=== PATIENT | female | born 1940 | race Caucasian/White ===

== ENCOUNTER → 2016-11-25 14:45 | Outpatient (CLI) | payer MEDICARE, BC ==
[2012-06-05 10:31] VITALS: BMI 28.4
== END | disposition home or self-care (01) ==
LOC: D.MRI 14:45
DX: R55 Syncope and collapse (principal)

== ENCOUNTER 2018-01-05 15:24 | Inpatient (IN) | payer MEDICARE, BC ==
[2018-01-05] VITALS (11 sets, daily range): BP systolic 119–200; BP diastolic 50–74
[~2018-01-05] VITALS: Ht 162.6 cm; Wt 73.5 kg
[2018-01-05] MEDS ORDERED: ASPIRIN81 MG PO (15:28)
[2018-01-05] MEDS ORDERED: GLIMEPIRIDE4 MG PO (15:28)
[2018-01-05] MEDS ORDERED: COREG12.5 MG PO (15:28)
[2018-01-05] MEDS ORDERED: FISH OIL 1,0001 CA1 PO (15:28)
[2018-01-05] MEDS ORDERED: PRAVACHOL20 MG PO (15:29)
[2018-01-05] MEDS ORDERED: PRINIVIL20 MG PO (15:29)
[2018-01-05] MEDS ORDERED: AMBIEN10 MG PO (15:29)
[2018-01-05] MEDS ORDERED: FUROSEMIDE20 MG PO (15:30)
[2018-01-05] MEDS ORDERED: ACTOS30 MG PO (15:30)
[2018-01-05] MEDS ORDERED: OMEPRAZOLE20 M1 PO (15:31)
[2018-01-05 17:05] LABS: CKMB 1.5 U/L (0.0-3.6); CREATINE KINASE 92 UL (21-215)
[2018-01-05 17:59] LABS: BASOPHILS 0.3 % (0-2); EOSINOPHILS 2.9 % (0-7); HEMATOCRIT 25.8 % (36.0-48.0); HEMOGLOBIN 8.2 g/dL (12-16); IMMATURE GRANULOCYTES 0.3 % (0-5); LYMPHOCYTES 32.5 % (15-50); MCH 29.1 pg (26.0-34.0); MCHC 31.8 g/dL (31.0-37.0); MCV 91.5 fL (80.0-100.0); MEAN PLATELET VOLUME 9.6 fL (7.4-10.4); MONOCYTES 8.3 % (2-11); NEUTROPHILS 55.7 % (40-80); PLATELET COUNT 205 10x3/uL (130-400); RBC 2.82 10x6/uL (4.00-5.40); RDW 15.8 % (11.5-14.5)
[2018-01-05 18:08] LABS: ALBUMIN 2.6 g/dL (3.4-5.0); ANION GAP 14.4 mmol/L (8-16); BILIRUBIN - TOTAL 0.19 mg/dL (0.2-1.3); CALCIUM 8.9 mg/dL (8.5-10.1); CARBON DIOXIDE 24.6 mmol/L (21.0-32.0); CREATININE - SERUM 2.4 mg/dL (0.6-1.3); PROTEIN - SERUM 6.4 g/dL (6.4-8.2)
[2018-01-05 18:53] LABS: APPEARANCE HAZY (CLEAR); BILIRUBIN NEGATIVE (NEGATIVE); COLOR STRAW (YELLOW); GLUCOSE NEGATIVE (NEGATIVE); KETONE NEGATIVE (NEGATIVE); NITRITE POSITIVE (NEGATIVE); PROTEIN TRACE mg/dL (NEGATIVE); SPECIFIC GRAVITY 1.015 (1.005-1.020); UROBILINOGEN NORMAL (NORMAL)
[2018-01-05 18:54] LABS: BACTERIA MANY /hpf (NONE SEEN); EPITHELIAL CELLS 0-5 /hpf (0-5)
[2018-01-06 00:21] VITALS: BP 190/79; BMI 27.8
[2018-01-06 01:43] LABS: CREATINE KINASE 104 UL (21-215)
[2018-01-06 01:46] LABS: TROPONIN-I 0.101 ng/mL (0.000-0.060)
[2018-01-06 04:00] VITALS: BP 158/47
[2018-01-06 09:19] LABS: CKMB 2.5 U/L (0.0-3.6); CREATINE KINASE 141 UL (21-215)
[2018-01-06 09:25] LABS: TROPONIN-I 0.094 ng/mL (0.000-0.060)
[2018-01-06 10:15] VITALS: BP 178/66
[2018-01-06 12:17] VITALS: BP 163/55
[2018-01-06 14:34] LABS: % SATURATION 19 % (15-55); IRON 53 ug/dl (35-150); TOTAL IRON BIND CAPACITY 274 ug/dl (260-445); UNSAT IRON BIND CAPACITY 221 ug/dl (150-375)
[2018-01-06 17:06] VITALS: BP 188/62
[2018-01-06 20:49] VITALS: BP 164/49
[2018-01-07 04:17] VITALS: BP 159/58
[2018-01-07 06:54] LABS: BASOPHILS 0.2 % (0-2); EOSINOPHILS 2.4 % (0-7); HEMATOCRIT 23.3 % (36.0-48.0); IMMATURE GRANULOCYTES 0.1 % (0-5); MCHC 31.8 g/dL (31.0-37.0); MCV 91.4 fL (80.0-100.0); MEAN PLATELET VOLUME 9.5 fL (7.4-10.4); MONOCYTES 10.2 % (2-11); NEUTROPHILS 55.1 % (40-80); PLATELET COUNT 193 10x3/uL (130-400); RBC 2.55 10x6/uL (4.00-5.40); RDW 16.1 % (11.5-14.5); WBC 8.6 10x3/uL (4.8-10.8)
[2018-01-07 07:02] LABS: HEMOGLOBIN 7.4 g/dL (12-16)
[2018-01-07 07:27] LABS: ALBUMIN 2.1 g/dL (3.4-5.0); ANION GAP 11.3 mmol/L (8-16); BILIRUBIN - TOTAL 0.12 mg/dL (0.2-1.3); CALCIUM 8.5 mg/dL (8.5-10.1); CARBON DIOXIDE 24.3 mmol/L (21.0-32.0); POTASSIUM - SERUM 4.6 mmol/L (3.5-5.1); PROTEIN - SERUM 5.5 g/dL (6.4-8.2)
[2018-01-07 09:09] VITALS: BP 181/94
[2018-01-07 12:31] VITALS: BP 186/63
[2018-01-07 19:34] VITALS: BP 166/63
[2018-01-08 04:05] VITALS: BP 145/62
[2018-01-08 05:52] LABS: BASOPHILS 0.3 % (0-2); EOSINOPHILS 2.4 % (0-7); HEMATOCRIT 27.3 % (36.0-48.0); HEMOGLOBIN 8.7 g/dL (12-16); IMMATURE GRANULOCYTES 0.3 % (0-5); LYMPHOCYTES 33.9 % (15-50); MCH 28.3 pg (26.0-34.0); MCHC 31.9 g/dL (31.0-37.0); MEAN PLATELET VOLUME 9.1 fL (7.4-10.4); MONOCYTES 11.5 % (2-11); NEUTROPHILS 51.6 % (40-80); PLATELET COUNT 180 10x3/uL (130-400); RDW 16.3 % (11.5-14.5); WBC 7.9 10x3/uL (4.8-10.8)
[2018-01-08 06:07] LABS: RBC 3.07 10x6/uL (4.00-5.40)
[2018-01-08 06:08] LABS: MCV 88.9 fL (80.0-100.0)
[2018-01-08 06:22] LABS: ALBUMIN 2.3 g/dL (3.4-5.0); ANION GAP 12.8 mmol/L (8-16); BILIRUBIN - TOTAL 0.2 mg/dL (0.2-1.3); CALCIUM 8.8 mg/dL (8.5-10.1); CARBON DIOXIDE 22.2 mmol/L (21.0-32.0); CREATININE - SERUM 1.9 mg/dL (0.6-1.3)
[2018-01-08 08:25] VITALS: BP 153/45
[2018-01-08 13:22] VITALS: BP 182/68
[2018-01-08 14:32] VITALS: BMI 27.8
[2018-01-08 16:55] VITALS: BP 161/81
[2018-01-08 20:00] VITALS: BP 164/63
[2018-01-09 00:18] VITALS: BP 117/47
[2018-01-09 04:10] VITALS: BP 143/59
[2018-01-09 06:19] LABS: BASOPHILS 0.2 % (0-2); EOSINOPHILS 3.1 % (0-7); HEMATOCRIT 26.2 % (36.0-48.0); HEMOGLOBIN 8.3 g/dL (12-16); IMMATURE GRANULOCYTES 0.2 % (0-5); LYMPHOCYTES 26.9 % (15-50); MCHC 31.7 g/dL (31.0-37.0); MEAN PLATELET VOLUME 9.4 fL (7.4-10.4); MONOCYTES 12.1 % (2-11); NEUTROPHILS 57.5 % (40-80); PLATELET COUNT 174 10x3/uL (130-400); RBC 2.86 10x6/uL (4.00-5.40); RDW 16.5 % (11.5-14.5); WBC 8.1 10x3/uL (4.8-10.8)
[2018-01-09 06:20] LABS: MCV 91.6 fL (80.0-100.0)
[2018-01-09 06:45] LABS: ALBUMIN 2.2 g/dL (3.4-5.0); ANION GAP 11.8 mmol/L (8-16); BILIRUBIN - TOTAL 0.1 mg/dL (0.2-1.3); CALCIUM 7.9 mg/dL (8.5-10.1); CARBON DIOXIDE 23.2 mmol/L (21.0-32.0); CREATININE - SERUM 2.1 mg/dL (0.6-1.3); PROTEIN - SERUM 5.5 g/dL (6.4-8.2)
[2018-01-09 07:34] LABS: FOLATE (FOLIC ACID) - SERUM 14.2 ng/mL (>3.0)
[2018-01-09 08:28] VITALS: BP 168/57
[2018-01-09 15:57] VITALS: BP 131/59
[2018-01-09 19:15] VITALS: BP 179/57
[2018-01-09 20:00] VITALS: BP 188/65
[2018-01-10] VITALS: BP 136/85
[2018-01-10 04:01] VITALS: BP 162/80
[2018-01-10 06:19] LABS: BASOPHILS 0.2 % (0-2); EOSINOPHILS 2.6 % (0-7); HEMATOCRIT 26.2 % (36.0-48.0); HEMOGLOBIN 8.2 g/dL (12-16); IMMATURE GRANULOCYTES 0.3 % (0-5); LYMPHOCYTES 21.6 % (15-50); MCH 28.9 pg (26.0-34.0); MCHC 31.3 g/dL (31.0-37.0); MCV 92.3 fL (80.0-100.0); MEAN PLATELET VOLUME 9.3 fL (7.4-10.4); MONOCYTES 11.9 % (2-11); NEUTROPHILS 63.4 % (40-80); PLATELET COUNT 178 10x3/uL (130-400); RBC 2.84 10x6/uL (4.00-5.40); RDW 16.4 % (11.5-14.5); WBC 9.7 10x3/uL (4.8-10.8)
[2018-01-10 06:44] LABS: ALBUMIN 2.2 g/dL (3.4-5.0); ANION GAP 13.9 mmol/L (8-16); BILIRUBIN - TOTAL 0.2 mg/dL (0.2-1.3); CARBON DIOXIDE 23.3 mmol/L (21.0-32.0); CREATININE - SERUM 1.9 mg/dL (0.6-1.3); POTASSIUM - SERUM 5.2 mmol/L (3.5-5.1); PROTEIN - SERUM 5.6 g/dL (6.4-8.2)
[2018-01-10 08:34] VITALS: BP 189/75
[2018-01-10 12:25] VITALS: BP 174/68
[2018-01-10 15:28] VITALS: BP 162/54
[2018-01-10 20:00] VITALS: BP 175/77
[2018-01-11 03:45] VITALS: BP 180/75
[2018-01-11 05:58] LABS: BASOPHILS 0.2 % (0-2); EOSINOPHILS 1.7 % (0-7); HEMATOCRIT 27.5 % (36.0-48.0); HEMOGLOBIN 8.6 g/dL (12-16); IMMATURE GRANULOCYTES 0.4 % (0-5); LYMPHOCYTES 17.3 % (15-50); MCH 29.1 pg (26.0-34.0); MCHC 31.3 g/dL (31.0-37.0); MCV 92.9 fL (80.0-100.0); MEAN PLATELET VOLUME 8.6 fL (7.4-10.4); MONOCYTES 7.4 % (2-11); PLATELET COUNT 157 10x3/uL (130-400); RBC 2.96 10x6/uL (4.00-5.40); RDW 16.2 % (11.5-14.5)
[2018-01-11 06:02] LABS: WBC 12.5 10x3/uL (4.8-10.8)
[2018-01-11 06:28] LABS: ALBUMIN 2.4 g/dL (3.4-5.0); ANION GAP 9.3 mmol/L (8-16); BILIRUBIN - TOTAL 0.27 mg/dL (0.2-1.3); CALCIUM 8.6 mg/dL (8.5-10.1); CARBON DIOXIDE 26.1 mmol/L (21.0-32.0); CREATININE - SERUM 1.8 mg/dL (0.6-1.3); POTASSIUM - SERUM 5.4 mmol/L (3.5-5.1); PROTEIN - SERUM 6.3 g/dL (6.4-8.2)
[2018-01-11 12:22] VITALS: BP 126/63
[2018-01-11 14:01] VITALS: Ht 162.6 cm; Wt 73.5 kg
[2018-01-11] MEDS ORDERED: HYDRALAZINE HCL25 MG PO (15:14)
[2018-01-11] MEDS ORDERED: TESSALON PERLE100 MG PO (15:15)
[2018-01-11] MEDS ORDERED: LEVAQUIN250 MG PO (15:15)
[2018-01-11] MEDS ORDERED: MUCINEX600 MG PO (15:15)
[2018-01-11] MEDS ORDERED: VELTASSA8.4 GM PO (15:16)
[2018-01-11 15:51] VITALS: BP 177/58
[2018-01-12 15:24] LABS: SPE - ALBUMIN 2.9 g/dL (2.9-4.4); SPE - ALPHA-1 GLOBULIN 0.3 g/dL (0.0-0.4); SPE - ALPHA-2 GLOBULIN 0.8 g/dL (0.4-1.0); SPE - BETA GLOBULIN 0.9 g/dL (0.7-1.3); SPE - GAMMA GLOBULIN 0.9 g/dL (0.4-1.8); SPE - M-SPIKE Not Observed g/dL (Not Observed); SPE - TOTAL PROTEIN 5.8 g/dL (6.0-8.5)
== END 2018-01-11 16:16 | disposition home health service (06) | DRG 872 ==
LOC: D.ER 15:24 → D.EDHOLD 20:21 → D.MS 20:21 → OBSVTIME 20:21 → D.MS 20:26
PROVIDERS: Family Medicine; Internal Medicine Nephrology
DX: A41.9 Sepsis, unspecified organism (principal); N39.0 Urinary tract infection, site not specified; N17.9 Acute kidney failure, unspecified; R53.1 Weakness; E11.22 Type 2 diabetes mellitus with diabetic chronic kidney disease; I12.9 Hypertensive chronic kidney disease with stage 1 through stage 4 chronic kidney disease, or unspecified chronic kidney disease; N18.3 Chronic kidney disease, stage 3 (moderate); J44.9 Chronic obstructive pulmonary disease, unspecified; D64.9 Anemia, unspecified

== ENCOUNTER 2018-01-12 13:26 | Inpatient (IN) | payer MEDICARE, BC ==
[2018-01-12] VITALS (8 sets, daily range): BP systolic 151–231; BP diastolic 52–104; BMI 27.8
[~2018-01-12] VITALS: Ht 162.6 cm; Wt 73.5 kg
--- NOTE | ~2018-01-12 | EC ---
PATIENT:DERRICK YAN DATE OF SERVICE: 01/12/18 SEX: F MEDICAL RECORD: [id number] DATE OF : 42 LOCATION:D.M2 D.213 AGE OF PATIENT: 77 ADMISSION DATE: 01/12/18 REFERRING PHYSICIAN: INTERPRETING PHYSICIAN: LIZ CORREA MD ECHOCARDIOGRAM REPORT ECHO CHARGES 4 ECHO COMPLETE Date: 01/13 CLINICAL DIAGNOSIS: CHF/EDEMA ECHOCARDIOGRAPHIC MEASUREMENTS (adult normal given) AC root (d.<3.7cm) 3.3 cm LV Septum d (<1.2 cm> 1.7 cm Valve Excursion 2.1 cm LV Septum (systole) 2.3 cm Left Atria (s.<4.0cm> 3.2 cm LVPW d(<1.2cm) 1.4 cm RV (d.<2.3cm) 2.2 cm LVPW (sytole) 2.2 cm LV diastole(<5.6CM) 4.8 cm MV E-F(>70mm/sec) cm LV systole 2.2 cm LVOT Diameter 1.7 cm MV exc.(>10mm) cm Est.ejection fraction (50-75%) % DOPPLER: LVIT cm/sec A 148 cm/sec E 130 cm/sec LA cm/sec RVSP 38.0 mmHg LVOT 113 cm/sec AOP1/2T m/s Asc. Ao 140 cm/sec RVOT 100 cm/sec RA cm/sec PA 107 cm/sec AV Gradient Peak 7.8 mmHg AV Mean 3.1 mmHg AV Area 2.4 cm MV Gradient Peak 9.8 mmHg MV Mean 3.4 mmHg MV Area cm COMMENTS: Picture Copyist: 1 [place] Polymer Engineer: 4 Dr. Correa TAPE# PACS Pericardial Effusion N DATE OF SERVICE: PROCEDURE: Transthoracic echocardiogram. FINDINGS: 1. The patient has evidence of left ventricular hypertrophy. Ejection fraction in the left ventricle is 60% to 65%. Inflow characteristics consistent with diastolic dysfunction. 2. The left atrium is normal in size, shape, and function. 3. The aortic valve is normal. ECHOCARDIOGRAM REPORT [id number] DERRICK YAN 4. The mitral valve has [id number] mitral regurgitation. There is mitral annular calcification. 5. The tricuspid valve has moderate tricuspid regurgitation. RVSP is 30-35 mmHg. 6. The right ventricle is normal. 7. The right atrium is normal. 8. The pulmonic valve has trace pulmonic valve insufficiency. CONCLUSION: The patient has evidence of hypertensive heart disease and diastolic dysfunction, otherwise normal echo for stated age. TRANSINT:[id number] Voice Confirmation ID: [id number] DOCUMENT ID: [id number] LIZ CORREA MD at 1147 CC: [id number] DICTATION DATE: 01/14/181815 ARBOREAL SCIENTIST: 01/14/181932 DIS IN 01/16/18 [facility] [address] [place] [address]
[~2018-01-12 13:26] MED LIST: ACTOS30 MG PO; AMBIEN10 MG PO; ASPIRIN81 MG PO; COREG12.5 MG PO; FISH OIL 1,0001 CA1 PO; FUROSEMIDE20 MG PO; GLIMEPIRIDE4 MG PO; HYDRALAZINE HCL25 MG PO; LEVAQUIN250 MG PO; MUCINEX600 MG PO; OMEPRAZOLE20 M1 PO; PRAVACHOL20 MG PO; PRINIVIL20 MG PO; TESSALON PERLE100 MG PO; VELTASSA8.4 GM PO
[2018-01-12 14:39] LABS: BASOPHILS 0.3 % (0-2); EOSINOPHILS 1.1 % (0-7); HEMATOCRIT 27.2 % (36.0-48.0); HEMOGLOBIN 8.6 g/dL (12-16); IMMATURE GRANULOCYTES 0.6 % (0-5); LYMPHOCYTES 18.8 % (15-50); MCH 29.4 pg (26.0-34.0); MCHC 31.6 g/dL (31.0-37.0); MCV 92.8 fL (80.0-100.0); MEAN PLATELET VOLUME 9.1 fL (7.4-10.4); MONOCYTES 9.5 % (2-11); NEUTROPHILS 69.7 % (40-80); PLATELET COUNT 175 10x3/uL (130-400); RBC 2.93 10x6/uL (4.00-5.40); RDW 15.7 % (11.5-14.5); WBC 10.2 10x3/uL (4.8-10.8)
[2018-01-12 14:46] LABS: APPEARANCE CLEAR (CLEAR); BILIRUBIN NEGATIVE (NEGATIVE); COLOR YELLOW (YELLOW); GLUCOSE NEGATIVE (NEGATIVE); KETONE NEGATIVE (NEGATIVE); NITRITE NEGATIVE (NEGATIVE); PROTEIN NEGATIVE (NEGATIVE); SPECIFIC GRAVITY 1.015 (1.005-1.020); UROBILINOGEN NORMAL (NORMAL)
[2018-01-12 14:47] LABS: BACTERIA FEW /hpf (NONE SEEN); WHITE CELLS - URINE OCC /hpf (0-5); YEAST >1+ /hpf (NONE SEEN)
[2018-01-12 15:01] LABS: ALBUMIN 2.6 g/dL (3.4-5.0); ALKALINE PHOSPHATASE 59 U/L (46-116); BILIRUBIN - TOTAL 0.23 mg/dL (0.2-1.3); CALCIUM 8.8 mg/dL (8.5-10.1); CHLORIDE - SERUM 105 mmol/L (98-107); GLUCOSE 159 mg/dL (74-106); POTASSIUM - SERUM 5.3 mmol/L (3.5-5.1); PROTEIN - SERUM 6.1 g/dL (6.4-8.2); SODIUM 139 mmol/L (136-145); eGFR NON AFRICAN AMERICAN 26 mL/min (90-120)
[2018-01-12 15:03] LABS: ALT (SGPT) 25 U/L (10-68); CALC OSMOLALITY 290 mosm/kg (275-300); UREA NITROGEN 40 mg/dL (7-18)
[2018-01-12 15:16] LABS: CKMB 2.1 U/L (0.0-3.6); CREATINE KINASE 116 UL (21-215); PRO BNP 7076 pg/mL (0-450)
[2018-01-12 15:20] LABS: TROPONIN-I 0.063 ng/mL (0.000-0.060)
[2018-01-13 01:25] VITALS: BP 142/49
[2018-01-13 05:37] VITALS: BP 147/54
[2018-01-13 05:47] LABS: BASOPHILS 0.2 % (0-2); EOSINOPHILS 1.8 % (0-7); HEMATOCRIT 26.6 % (36.0-48.0); HEMOGLOBIN 8.2 g/dL (12-16); IMMATURE GRANULOCYTES 0.2 % (0-5); MCH 28.8 pg (26.0-34.0); MCHC 30.8 g/dL (31.0-37.0); MCV 93.3 fL (80.0-100.0); MEAN PLATELET VOLUME 9.4 fL (7.4-10.4); MONOCYTES 11.3 % (2-11); NEUTROPHILS 66.5 % (40-80); PLATELET COUNT 169 10x3/uL (130-400); RBC 2.85 10x6/uL (4.00-5.40); RDW 15.7 % (11.5-14.5); WBC 8.4 10x3/uL (4.8-10.8)
[2018-01-13 06:18] LABS: ALBUMIN 2.2 g/dL (3.4-5.0); ANION GAP 9.1 mmol/L (8-16); BILIRUBIN - TOTAL 0.23 mg/dL (0.2-1.3); CALCIUM 8.3 mg/dL (8.5-10.1); CARBON DIOXIDE 29.6 mmol/L (21.0-32.0); POTASSIUM - SERUM 5.7 mmol/L (3.5-5.1); PROTEIN - SERUM 5.5 g/dL (6.4-8.2)
[2018-01-13 08:06] VITALS: BP 126/76
[2018-01-13 12:59] VITALS: Ht 162.6 cm; Wt 73.5 kg
[2018-01-13 16:45] VITALS: BP 122/73
[2018-01-13 20:00] VITALS: BP 137/50
[2018-01-14 04:00] VITALS: BP 180/62
[2018-01-14 05:05] LABS: BASOPHILS 0.2 % (0-2); EOSINOPHILS 2.5 % (0-7); HEMATOCRIT 26.2 % (36.0-48.0); HEMOGLOBIN 8.1 g/dL (12-16); IMMATURE GRANULOCYTES 0.2 % (0-5); LYMPHOCYTES 19.9 % (15-50); MCH 28.7 pg (26.0-34.0); MCHC 30.9 g/dL (31.0-37.0); MCV 92.9 fL (80.0-100.0); MEAN PLATELET VOLUME 9.1 fL (7.4-10.4); MONOCYTES 10.4 % (2-11); NEUTROPHILS 66.8 % (40-80); PLATELET COUNT 170 10x3/uL (130-400); RBC 2.82 10x6/uL (4.00-5.40); RDW 15.5 % (11.5-14.5); WBC 9.4 10x3/uL (4.8-10.8)
[2018-01-14 05:29] LABS: ALBUMIN 2.1 g/dL (3.4-5.0); ANION GAP 9.3 mmol/L (8-16); BILIRUBIN - TOTAL 0.3 mg/dL (0.2-1.3); CALCIUM 8.5 mg/dL (8.5-10.1); POTASSIUM - SERUM 5.3 mmol/L (3.5-5.1); PROTEIN - SERUM 5.6 g/dL (6.4-8.2)
[2018-01-14 08:43] VITALS: BP 194/70
[2018-01-14 11:59] VITALS: BP 182/71
[2018-01-14 14:25] LABS: % SATURATION 14 % (15-55); IRON 31 ug/dl (35-150); TOTAL IRON BIND CAPACITY 216 ug/dl (260-445); UNSAT IRON BIND CAPACITY 185 ug/dl (150-375)
[2018-01-14 16:07] VITALS: BP 184/70
[2018-01-14 20:00] VITALS: BP 151/62
[2018-01-15 04:00] VITALS: BP 174/54
[2018-01-15 05:25] LABS: BASOPHILS 0.3 % (0-2); EOSINOPHILS 2.7 % (0-7); HEMATOCRIT 26.8 % (36.0-48.0); HEMOGLOBIN 8.5 g/dL (12-16); IMMATURE GRANULOCYTES 0.3 % (0-5); LYMPHOCYTES 21.4 % (15-50); MCH 29.1 pg (26.0-34.0); MCHC 31.7 g/dL (31.0-37.0); MCV 91.8 fL (80.0-100.0); MEAN PLATELET VOLUME 9.3 fL (7.4-10.4); MONOCYTES 10.4 % (2-11); NEUTROPHILS 64.9 % (40-80); PLATELET COUNT 184 10x3/uL (130-400); RBC 2.92 10x6/uL (4.00-5.40); RDW 15.2 % (11.5-14.5); WBC 7.8 10x3/uL (4.8-10.8)
[2018-01-15 05:55] LABS: ANION GAP 10.4 mmol/L (8-16); BILIRUBIN - TOTAL 0.31 mg/dL (0.2-1.3); CALCIUM 8.5 mg/dL (8.5-10.1); CARBON DIOXIDE 28.2 mmol/L (21.0-32.0); CREATININE - SERUM 1.9 mg/dL (0.6-1.3); POTASSIUM - SERUM 4.6 mmol/L (3.5-5.1); PROTEIN - SERUM 5.6 g/dL (6.4-8.2)
[2018-01-15 08:32] VITALS: BP 193/71
[2018-01-15 12:03] VITALS: BP 167/61
[2018-01-15 15:40] VITALS: BP 194/74
[2018-01-15 20:00] VITALS: BP 155/49
[2018-01-16 04:49] VITALS: BP 151/41
[2018-01-16 06:01] LABS: BASOPHILS 0.2 % (0-2); EOSINOPHILS 2.5 % (0-7); HEMATOCRIT 26.1 % (36.0-48.0); HEMOGLOBIN 8.2 g/dL (12-16); IMMATURE GRANULOCYTES 0.3 % (0-5); MCH 28.7 pg (26.0-34.0); MCHC 31.4 g/dL (31.0-37.0); MCV 91.3 fL (80.0-100.0); MONOCYTES 11.2 % (2-11); NEUTROPHILS 59.8 % (40-80); PLATELET COUNT 184 10x3/uL (130-400); RBC 2.86 10x6/uL (4.00-5.40); RDW 15.2 % (11.5-14.5); WBC 8.6 10x3/uL (4.8-10.8)
[2018-01-16 06:50] LABS: ANION GAP 10.4 mmol/L (8-16); BILIRUBIN - TOTAL 0.25 mg/dL (0.2-1.3); CALCIUM 8.7 mg/dL (8.5-10.1); CARBON DIOXIDE 28.3 mmol/L (21.0-32.0); POTASSIUM - SERUM 4.7 mmol/L (3.5-5.1); PROTEIN - SERUM 5.4 g/dL (6.4-8.2)
[2018-01-16 08:19] LABS: FOLATE (FOLIC ACID) - SERUM 11.9 ng/mL (>3.0)
[2018-01-16 08:33] VITALS: BP 149/71
[2018-01-16 11:40] VITALS: BP 126/72
[2018-01-16] MEDS ORDERED: LEVAQUIN250 MG PO (12:58)
[2018-01-16 16:02] VITALS: BP 158/53
== END 2018-01-16 23:43 | DRG 291 ==
LOC: D.ER 13:26 → D.EDHOLD 16:01 → D.M2 16:01
PROVIDERS: Emergency Medicine; Family Medicine
DX: I13.0 Hypertensive heart and chronic kidney disease with heart failure and stage 1 through stage 4 chronic kidney disease, or unspecified chronic kidney disease (principal); I50.31 Acute diastolic (congestive) heart failure; N17.9 Acute kidney failure, unspecified; N39.0 Urinary tract infection, site not specified; N18.3 Chronic kidney disease, stage 3 (moderate); E11.22 Type 2 diabetes mellitus with diabetic chronic kidney disease; F41.9 Anxiety disorder, unspecified; D63.1 Anemia in chronic kidney disease; E87.5 Hyperkalemia

== ENCOUNTER 2018-01-16 19:55 | Inpatient (IN) | payer MEDICARE, BC ==
[~2018-01-16] VITALS: Ht 162.6 cm; Wt 80.0 kg
--- NOTE | ~2018-01-16 | RHP ---
PATIENT: DERRICK YAN MEDICAL RECORD: [id number] ACCOUNT: [id number] LOCATION:[facility]1118 : 42 ADMISSION DATE: 01/16/18 REHABILITATION HISTORY AND PHYSICAL EXAMINATION POST ADMISSION PHYSICIAN EXAMINATION POST-ADMISSION PHYSICAL EXAMINATION AND HISTORY AND PHYSICAL DATE OF ADMISSION: 01/16/2018 ADMITTING DIAGNOSES: Disuse myopathy. 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 She was discharged on 01/11/2018 from the hospital and she demanded to go home. She was treated for UTI with nausea and vomiting. Police were sent to her home for a welfare check and she was unable to ambulate to the door because of some continued swelling of her extremity, shortness of breath, and 2-pillow orthopnea. Chest x-ray showed mild interstitial prominence in the lungs, which may correspond to edema or pneumonia. Echo showed the patient had evidence of hypertensive heart disease and diastolic dysfunction. She was admitted for further evaluation and treatment. Cardiology was consulted. She was diuresed and improved. She had prolonged immobility, progressive generalized weakness especially in lower extremities affecting her tolerance to PT. She is very fatigued. She has limited flexion and extension of her lower extremities. She has mod to max assist for ADLs, mod to max assist for sit to stand and bed to chair. Previously, she lived alone, was independent with ADLs and mobility. She did her own errands and drove short distances. She is motivated to regain her strength and hopefully return home and get back to her prior level of functioning. COMORBIDITIES: Include weakness, diabetes, anemia, UTI, chronic renal disease, sepsis, hypertension, worsening of stage III kidney disease, acute kidney injury, type 2 diabetes, gallstones, acute dyspnea, CHF, myopathy, diastolic CHF, dyspnea on exertion, history of DVT, edema, hypertension, and sepsis. PAST MEDICAL HISTORY: Significant for cataracts, diabetes, edema, blood clots, hypertension, anemia, and anxiety. PAST SURGICAL HISTORY: Includes cataract surgery, tonsillectomy, adenoidectomy, hysterectomy, and bladder sling times 2. ALLERGIES: AMOXICILLIN. CURRENT MEDICATIONS: Include Floranex daily, Actos 45 mg daily. She is on Veltassa 8.4 mg daily, lisinopril 20 mg daily, Levaquin 250 mg daily, Lasix 20 mg daily, omega 3 daily, carvedilol 12.5 mg b.i.d. with meals, Ambien 10 mg q.h.s., Pravachol 10 mg q.h.s., Apresoline 25 mg b.i.d., Mucinex 1200 mg b.i.d., Tessalon Perles 100 mg t.i.d., chewable aspirin 81 mg at bedtime, and polyethylene glycol 17 grams in 8 ounces of water daily. HABITS: No current alcohol or tobacco use. FAMILY HISTORY: Noncontributory. HISTORY AND PHYSICAL [id number] DERRICK YAN SOCIAL HISTORY: The patient hopes to return back home and get back to her prior level of functioning. REVIEW OF SYSTEMS: GENERAL: Does complain of weakness and fatigue. HEENT: Denies cold, cough, or congestion. CARDIOVASCULAR: Denies chest pain. PHYSICAL EXAMINATION: VITAL SIGNS: Stable, afebrile. GENERAL: A morbidly obese female, in no acute distress, alert upon exam. HEENT: Normocephalic and atraumatic. Mucosa moist. NECK: Supple. No lymphadenopathy. LUNGS: Clear in upper aragon. HEART: Regular rate and rhythm. ABDOMEN: Benign, although obese. EXTREMITIES: Does have peripheral edema. NEUROLOGIC: Does have noted weakness. LABORATORY DATA: White count is 8.8, H&H of 7.9 and 25.2, and platelet count was noted to be 182. Her sodium is 139, potassium 4.5, BUN and creatinine of 46 and 2.0, and blood sugar is noted to be 143. ASSESSMENT: This is a 77-year-old female patient admitted to rehab with a working diagnosis of disuse myopathy. The patient has potential to make improvement. We instituted the following multidisciplinary therapies including, but not limited to physical, occupational, respiratory, speech, nutritional services, prosthetics, and orthotics. Given her complex medical condition and risk for more complications, rehabilitation services cannot be provided at a low level of care such as penitentiary facility. PLAN: 1. Admit to [facility] for intensive inpatient therapy to include the following disciplines: A. Physical therapy to improve gait, all transfer skills and bed mobility to a modified independent level. B. Occupational therapy to improve activities of daily living to a modified independent level. C. Case management to assist with discharge planning and placement options. D. Nutrition to assist with nutritional needs. E. Rehabilitation nursing to assist in monitoring the patient's underlying medical conditions and to assist with any type of bowel or bladder management. 2. The patient's current medication and medical can be continued. 3. Placed on standard fall precautions. 4. The patient's estimated length of stay is approximately 7-10 days. 5. Discuss this patient during care team staff meeting this week. 6. I am going to watch her H&H closely and transfuse if necessary. TRANSINT:[id number] Voice Confirmation ID: [id number] DOCUMENT ID: [id number] MERLIN notes whether there has been none or any medical/functional change since admission: - No change since the PAS HISTORY AND PHYSICAL [id number] DERRICK YAN attests patient continues to be appropriate for IRF: - Remains appropriate for the IRF EDWARDO CERRATO MD at 1438 CC: [id number] DICTATION DATE: 01/17/18 0846 SUPPORT ANALYST: 01/17/18 1020 ADM IN [facility] [address] [place] [address]
[2018-01-16 21:44] VITALS: BMI 48.2
[2018-01-17 07:07] LABS: BASOPHILS 0.3 % (0-2); EOSINOPHILS 2.3 % (0-7); HEMATOCRIT 25.2 % (36.0-48.0); HEMOGLOBIN 7.9 g/dL (12-16); IMMATURE GRANULOCYTES 0.6 % (0-5); LYMPHOCYTES 25.2 % (15-50); MCH 28.4 pg (26.0-34.0); MCHC 31.3 g/dL (31.0-37.0); MCV 90.6 fL (80.0-100.0); MEAN PLATELET VOLUME 9.3 fL (7.4-10.4); MONOCYTES 11.5 % (2-11); NEUTROPHILS 60.1 % (40-80); PLATELET COUNT 182 10x3/uL (130-400); RBC 2.78 10x6/uL (4.00-5.40); RDW 15.4 % (11.5-14.5); WBC 8.8 10x3/uL (4.8-10.8)
[2018-01-17 07:37] LABS: ANION GAP 8.8 mmol/L (8-16); CALCIUM 8.4 mg/dL (8.5-10.1); CARBON DIOXIDE 29.7 mmol/L (21.0-32.0); POTASSIUM - SERUM 4.5 mmol/L (3.5-5.1)
[2018-01-17 08:00] VITALS: BP 144/55
[2018-01-17 10:21] VITALS: Ht 162.6 cm; Wt 80.0 kg
[2018-01-17 19:00] VITALS: BP 198/68
[2018-01-18 08:00] VITALS: BP 153/51
[2018-01-18 19:00] VITALS: BP 155/55
[2018-01-19 06:23] LABS: BASOPHILS 0.2 % (0-2); EOSINOPHILS 2.8 % (0-7); HEMATOCRIT 24.4 % (36.0-48.0); HEMOGLOBIN 7.7 g/dL (12-16); IMMATURE GRANULOCYTES 0.8 % (0-5); LYMPHOCYTES 26.5 % (15-50); MCH 28.7 pg (26.0-34.0); MCHC 31.6 g/dL (31.0-37.0); MEAN PLATELET VOLUME 9.6 fL (7.4-10.4); MONOCYTES 8.6 % (2-11); NEUTROPHILS 61.1 % (40-80); PLATELET COUNT 190 10x3/uL (130-400); RBC 2.68 10x6/uL (4.00-5.40); RDW 15.5 % (11.5-14.5); WBC 9.9 10x3/uL (4.8-10.8)
[2018-01-19 06:24] LABS: ANION GAP 9.6 mmol/L (8-16); CALCIUM 8.3 mg/dL (8.5-10.1); CARBON DIOXIDE 28.9 mmol/L (21.0-32.0); CREATININE - SERUM 2.1 mg/dL (0.6-1.3); POTASSIUM - SERUM 4.5 mmol/L (3.5-5.1)
[2018-01-19 08:00] VITALS: BP 172/65
[2018-01-19 19:00] VITALS: BP 158/52
[2018-01-20 10:26] VITALS: BP 184/82
[2018-01-20 11:35] LABS: BASOPHILS 0.2 % (0-2); EOSINOPHILS 2.3 % (0-7); LYMPHOCYTES 19.5 % (15-50); MCH 28.7 pg (26.0-34.0); MCHC 31.4 g/dL (31.0-37.0); MCV 91.2 fL (80.0-100.0); MEAN PLATELET VOLUME 9.8 fL (7.4-10.4); MONOCYTES 8.9 % (2-11); NEUTROPHILS 68.1 % (40-80); PLATELET COUNT 222 10x3/uL (130-400); RDW 15.6 % (11.5-14.5); WBC 9.9 10x3/uL (4.8-10.8)
[2018-01-20 11:42] LABS: RBC 3.42 10x6/uL (4.00-5.40)
[2018-01-20 11:43] LABS: HEMATOCRIT 31.2 % (36.0-48.0); HEMOGLOBIN 9.8 g/dL (12-16)
[2018-01-21 09:53] VITALS: BP 167/55
[2018-01-22 05:57] LABS: BASOPHILS 0.2 % (0-2); EOSINOPHILS 2.1 % (0-7); HEMATOCRIT 28.8 % (36.0-48.0); HEMOGLOBIN 8.9 g/dL (12-16); IMMATURE GRANULOCYTES 0.8 % (0-5); LYMPHOCYTES 21.5 % (15-50); MCH 28.1 pg (26.0-34.0); MCHC 30.9 g/dL (31.0-37.0); MCV 90.9 fL (80.0-100.0); MEAN PLATELET VOLUME 10.1 fL (7.4-10.4); MONOCYTES 10.2 % (2-11); NEUTROPHILS 65.2 % (40-80); PLATELET COUNT 217 10x3/uL (130-400); RBC 3.17 10x6/uL (4.00-5.40); RDW 14.9 % (11.5-14.5); WBC 8.8 10x3/uL (4.8-10.8)
[2018-01-22 06:20] LABS: ANION GAP 6.9 mmol/L (8-16); CALCIUM 8.4 mg/dL (8.5-10.1); CARBON DIOXIDE 31.7 mmol/L (21.0-32.0); CREATININE - SERUM 1.9 mg/dL (0.6-1.3); POTASSIUM - SERUM 4.6 mmol/L (3.5-5.1)
[2018-01-22 07:57] VITALS: BP 170/71
[2018-01-22 19:00] VITALS: BP 152/58
[2018-01-23 08:00] VITALS: BP 105/48
[2018-01-23 19:00] VITALS: BP 141/45
[2018-01-24 07:13] LABS: BASOPHILS 0.1 % (0-2); EOSINOPHILS 2.3 % (0-7); HEMATOCRIT 28.5 % (36.0-48.0); HEMOGLOBIN 8.9 g/dL (12-16); IMMATURE GRANULOCYTES 0.7 % (0-5); LYMPHOCYTES 22.1 % (15-50); MCH 28.5 pg (26.0-34.0); MCHC 31.2 g/dL (31.0-37.0); MCV 91.3 fL (80.0-100.0); MEAN PLATELET VOLUME 9.4 fL (7.4-10.4); NEUTROPHILS 62.8 % (40-80); PLATELET COUNT 214 10x3/uL (130-400); RBC 3.12 10x6/uL (4.00-5.40); RDW 15.1 % (11.5-14.5); WBC 8.7 10x3/uL (4.8-10.8)
[2018-01-24 07:29] LABS: ANION GAP 5.2 mmol/L (8-16); CALCIUM 8.3 mg/dL (8.5-10.1); CARBON DIOXIDE 35.4 mmol/L (21.0-32.0); CREATININE - SERUM 2.2 mg/dL (0.6-1.3); POTASSIUM - SERUM 4.6 mmol/L (3.5-5.1)
[2018-01-24 08:00] VITALS: BP 183/51
[2018-01-24 20:54] VITALS: BP 130/42
[2018-01-25 13:27] VITALS: BP 142/47
[2018-01-25 19:00] VITALS: BP 110/43
[2018-01-26 08:03] VITALS: BP 158/60
[2018-01-26 08:38] LABS: BASOPHILS 0.4 % (0-2); EOSINOPHILS 3.1 % (0-7); HEMATOCRIT 30.2 % (36.0-48.0); HEMOGLOBIN 9.5 g/dL (12-16); IMMATURE GRANULOCYTES 0.7 % (0-5); LYMPHOCYTES 22.2 % (15-50); MCH 28.5 pg (26.0-34.0); MCHC 31.5 g/dL (31.0-37.0); MCV 90.7 fL (80.0-100.0); MEAN PLATELET VOLUME 9.3 fL (7.4-10.4); MONOCYTES 8.7 % (2-11); NEUTROPHILS 64.9 % (40-80); PLATELET COUNT 238 10x3/uL (130-400); RBC 3.33 10x6/uL (4.00-5.40); RDW 14.7 % (11.5-14.5); WBC 8.9 10x3/uL (4.8-10.8)
[2018-01-26 08:57] LABS: ANION GAP 6.8 mmol/L (8-16); CALCIUM 8.6 mg/dL (8.5-10.1); CARBON DIOXIDE 35.6 mmol/L (21.0-32.0); CREATININE - SERUM 2.4 mg/dL (0.6-1.3); POTASSIUM - SERUM 4.4 mmol/L (3.5-5.1)
== END 2018-01-26 11:30 | disposition home health service (06) | DRG 91 ==
LOC: D.REHAB 19:55
PROVIDERS: Emergency Medicine
DX: G72.89 Other specified myopathies (principal); K85.10 Biliary acute pancreatitis without necrosis or infection; A41.9 Sepsis, unspecified organism; I50.31 Acute diastolic (congestive) heart failure; I13.0 Hypertensive heart and chronic kidney disease with heart failure and stage 1 through stage 4 chronic kidney disease, or unspecified chronic kidney disease; N39.0 Urinary tract infection, site not specified; N17.9 Acute kidney failure, unspecified; E11.22 Type 2 diabetes mellitus with diabetic chronic kidney disease; R53.1 Weakness; R06.00 Dyspnea, unspecified; R60.9 Edema, unspecified

== ENCOUNTER 2018-01-28 12:16 | Inpatient (IN) | payer MEDICARE, BC ==
[~2018-01-28] VITALS: Ht 162.6 cm; Wt 73.5 kg
[2018-01-28 13:54] LABS: BASOPHILS 0.2 % (0-2); EOSINOPHILS 1.6 % (0-7); HEMATOCRIT 31.1 % (36.0-48.0); HEMOGLOBIN 10.1 g/dL (12-16); IMMATURE GRANULOCYTES 0.4 % (0-5); LYMPHOCYTES 20.5 % (15-50); MCH 28.7 pg (26.0-34.0); MCHC 32.5 g/dL (31.0-37.0); MCV 88.4 fL (80.0-100.0); MEAN PLATELET VOLUME 9.2 fL (7.4-10.4); MONOCYTES 9.8 % (2-11); NEUTROPHILS 67.5 % (40-80); PLATELET COUNT 262 10x3/uL (130-400); RBC 3.52 10x6/uL (4.00-5.40); RDW 14.2 % (11.5-14.5); WBC 8.3 10x3/uL (4.8-10.8)
[2018-01-28 14:10] LABS: ALBUMIN 2.5 g/dL (3.4-5.0); ALKALINE PHOSPHATASE 78 U/L (46-116); ALT (SGPT) 24 U/L (10-68); BILIRUBIN - TOTAL 0.21 mg/dL (0.2-1.3); CALC OSMOLALITY 280 mosm/kg (275-300); CALCIUM 8.5 mg/dL (8.5-10.1); CARBON DIOXIDE 35.3 mmol/L (21.0-32.0); CHLORIDE - SERUM 99 mmol/L (98-107); CREATININE - SERUM 1.8 mg/dL (0.6-1.3); POTASSIUM - SERUM 3.4 mmol/L (3.5-5.1); PROTEIN - SERUM 6.4 g/dL (6.4-8.2); SODIUM 139 mmol/L (136-145); UREA NITROGEN 27 mg/dL (7-18); eGFR NON AFRICAN AMERICAN 29 mL/min (90-120)
[2018-01-28 14:17] LABS: LIPASE 93 U/L (73-393); MAGNESIUM - SERUM 1.8 mg/dL (1.8-2.4); PRO BNP 2898 pg/mL (0-450); THYROID STIMULATING HORMONE 0.56 uIU/mL (0.36-3.74); TROPONIN-I < 0.017 ng/mL (0.000-0.060)
[2018-01-28 14:31] LABS: GLUCOSE 66 mg/dL (74-106)
[2018-01-28] MEDS ORDERED: ZOFRAN4 MG PO (14:52)
[2018-01-28] MEDS ORDERED: GLIMEPIRIDE4 MG PO (15:38)
[2018-01-28] MEDS ORDERED: OMEPRAZOLE20 M1 PO (15:39)
[2018-01-28] MEDS ORDERED: VELTASSA8.4 GM PO (15:42)
[2018-01-28 19:23] VITALS: BP 119/56
[2018-01-28 23:17] VITALS: BP 157/49
[2018-01-29 00:39] VITALS: BP 157/49; BMI 27.8
[2018-01-29 04:20] VITALS: BP 150/51
[2018-01-29 07:45] LABS: BASOPHILS 0.1 % (0-2); EOSINOPHILS 1.4 % (0-7); HEMATOCRIT 27.5 % (36.0-48.0); HEMOGLOBIN 8.8 g/dL (12-16); IMMATURE GRANULOCYTES 0.4 % (0-5); LYMPHOCYTES 17.8 % (15-50); MCH 28.4 pg (26.0-34.0); MCV 88.7 fL (80.0-100.0); MEAN PLATELET VOLUME 9.1 fL (7.4-10.4); MONOCYTES 8.6 % (2-11); NEUTROPHILS 71.7 % (40-80); PLATELET COUNT 232 10x3/uL (130-400); RDW 14.5 % (11.5-14.5)
[2018-01-29 07:46] LABS: WBC 13.9 10x3/uL (4.8-10.8)
[2018-01-29 07:59] LABS: ANION GAP 4.3 mmol/L (8-16); CALCIUM 8.2 mg/dL (8.5-10.1); CARBON DIOXIDE 36.8 mmol/L (21.0-32.0); MAGNESIUM - SERUM 1.8 mg/dL (1.8-2.4); PHOSPHOROUS 4.4 mg/dL (2.5-4.9)
[2018-01-29 08:11] LABS: POTASSIUM - SERUM 4.1 mmol/L (3.5-5.1)
[2018-01-29 08:33] VITALS: BP 141/49
[2018-01-29 12:49] VITALS: BP 124/48
[2018-01-29 14:09] VITALS: BMI 27.8
[2018-01-29 14:43] VITALS: Ht 162.6 cm; Wt 73.5 kg
[2018-01-29 16:58] VITALS: BP 109/44
[2018-01-29 19:28] VITALS: BP 102/39
[2018-01-30 00:51] VITALS: BP 113/94
[2018-01-30 04:28] VITALS: BP 155/53
[2018-01-30 06:26] LABS: BASOPHILS 0.2 % (0-2); EOSINOPHILS 2.8 % (0-7); HEMATOCRIT 26.9 % (36.0-48.0); HEMOGLOBIN 8.6 g/dL (12-16); IMMATURE GRANULOCYTES 0.3 % (0-5); LYMPHOCYTES 26.5 % (15-50); MCH 28.5 pg (26.0-34.0); MCV 89.1 fL (80.0-100.0); MEAN PLATELET VOLUME 9.9 fL (7.4-10.4); MONOCYTES 11.5 % (2-11); NEUTROPHILS 58.7 % (40-80); PLATELET COUNT 243 10x3/uL (130-400); RBC 3.02 10x6/uL (4.00-5.40); RDW 14.7 % (11.5-14.5)
[2018-01-30 06:44] LABS: WBC 9.2 10x3/uL (4.8-10.8)
[2018-01-30 06:56] LABS: ANION GAP 11.9 mmol/L (8-16); CALCIUM 7.9 mg/dL (8.5-10.1); CREATININE - SERUM 2.3 mg/dL (0.6-1.3); POTASSIUM - SERUM 3.9 mmol/L (3.5-5.1)
[2018-01-30 08:01] VITALS: BP 169/93
[2018-01-30 13:06] VITALS: BP 147/57
== END 2018-01-30 16:53 | DRG 638 ==
LOC: D.ER 12:16 → D.MS 15:46 → OBSVTIME 15:46 → D.EDHOLD 15:46 → D.MS 17:14 → D.EDHOLD 17:32 → D.MS 21:31 → D.SDCHOLD 01-29 09:52 → D.MS 01-29 16:33
PROVIDERS: Family Medicine; Internal Medicine Nephrology
DX: E11.649 Type 2 diabetes mellitus with hypoglycemia without coma (principal); I13.0 Hypertensive heart and chronic kidney disease with heart failure and stage 1 through stage 4 chronic kidney disease, or unspecified chronic kidney disease; I50.32 Chronic diastolic (congestive) heart failure; T38.3X5A Adverse effect of insulin and oral hypoglycemic [antidiabetic] drugs, initial encounter; N18.3 Chronic kidney disease, stage 3 (moderate); E11.22 Type 2 diabetes mellitus with diabetic chronic kidney disease; D50.9 Iron deficiency anemia, unspecified; F41.9 Anxiety disorder, unspecified; R53.1 Weakness; Z86.718 Personal history of other venous thrombosis and embolism; Z79.84 Long term (current) use of oral hypoglycemic drugs

== ENCOUNTER 2018-02-25 12:23 | Inpatient (IN) | payer MEDICARE, BC ==
[~2018-02-25] VITALS: Ht 162.6 cm; Wt 78.9 kg
--- NOTE | ~2018-02-25 | MORECARE ---
CASE MANAGEMENT DISCHARGE SUMMARY PATIENT: DERRICK YAN UNIT: [id number] ADM DATE: 02/25/18 AGE: 77 : 41 SEX: F ROOM/BED: D.4292 AUTHOR: JI, ADMITTANCE ATTENDANT PHYSICIAN: REFERRING PHYSICIAN: JAMES CARR MD DATE OF SERVICE: 02/25/18 Discharge Plan Patient Name: DERRICK YAN Facility: [facility]:[place] : 1940 Planned Disposition: [facility] Facility Anticipated Discharge Date: 02/28/18 Discharge Date: Expected LOS: 3 Initial Reviewer: [email or web address] Initial Review Date: 02/26/2018 Generated: 02/28/18 1:59 pm Comments DCP- Discharge Planning Updated by [email or web address]: Sriram Winchester on 02/26/18 4:[address] Patient Name: DERRICK YAN Admission Status: ER Accout number: [id number] Admission Date: 02-25-2018 : 1940 Admission Diagnosis: Attending: JAMES CARR Current LOS: 1 Anticipated DC Date: 02-27-2018 Planned Disposition: Home with Home Health Primary Insurance: MEDICARE A & B PLANNED EXTERNAL PROVIDER: [facility] Discharge Planning Comments: * Is the patient Alert and Oriented? Yes 0 * How many steps to enterexit or inside your home? NONE 0 * PCP DR. CHARLES 0 * Pharmacy [facility] IN [place] 0 * Preadmission Environment Home Alone 0 * ADLs Independent 0 * Equipment Bedside Commode Glucometer Rolling Walker Shower Chair 0 * Other Equipment NO MEDICAL EQUIPMENT PROVIDER [place] 0 * List name and contact numbers for known caregivers / representatives who currently or will assist patient after discharge: JOHN HOANG, 0 * Verbal permission to speak to the caregivers and representatives has been obtained from the patient. N/A 0 * Community resources currently utilized Home Health 0 * Please name any agencies selected above. [facility] 0 * Additional services required to return to the preadmission environment? No 0 * Can the patient safely return to the preadmission environment? Yes 0 * Has this patient been hospitalized within the prior 30 days at any hospital? Yes 0 CM RECIEVED INPATIENT REHAB PRESCREENING ORDER, MET WITH PT IN ROOM TO DISCUSS DISCHARGE PLANNING AND NEEDS. PT REPORTS LIVING AT HOME INDEPENDENTLY AND ALONE. PT REPORTS HAVING ALL NEEDED MEDICAL EQUIPMENT AND HAS HOME HEALTH NURSING AND THERAPY WITH [facility]. CM DISCUSSED AVAILABILITY OF HOME HEALTH, REHAB SERVICES AND MEDICAL EQUIPMENT. PT DOES NOT WANT TO CONSIDER [facility] OR INPATIENT REHAB AGAIN RIGHT NOW SHE HAS BEEN TO INPATIENT AT [place] AND DID NOT LIKE SHARING A ROOM; PT MAY CONSIDER [facility] SHE JUST GOT OUT OF THERE A WEEK AGO MONDAY AND REALLY WANTS TO DISCHARGE BACK HOME WITH [facility] IF POSSIBE. PT REPORTS HER SON WILL PICK HER UP FOR DISCHARGE HOME. PT CONSIDERING REHAB AT [facility] AND [facility], BUT PLANS TO RETURN HOME WITH [employer] [facility] IF ABLE AT TIME OF DISCHARGE. Car Stereo Installer: Sriram Winchester DCPIA - Discharge Planning Initial Assessment Updated by [email or web address]: Sriram Winchester on 02/26/18 4:56 pm * Is the patient Alert and Oriented? Yes * How many steps to enterexit or inside your home? NONE * PCP DR. CHARLES * Pharmacy [facility] IN [place] * Preadmission Environment Home Alone * ADLs Independent * Equipment Bedside Commode Glucometer Rolling Walker Shower Chair * Other Equipment NO MEDICAL EQUIPMENT PROVIDER [facility] * List name and contact numbers for known caregivers / representatives who currently or will assist patient after discharge: CALEB CRUZ, JOHN, * Verbal permission to speak to the caregivers and representatives has been obtained from the patient. N/A * Community resources currently utilized Home Health * Please name any agencies selected above. [facility] * Additional services required to return to the preadmission environment? No * Can the patient safely return to the preadmission environment? Yes * Has this patient been hospitalized within the prior 30 days at any hospital? Yes External Providers [facility] Next Contact Date: 02/28/2018 Service Request Date: Service Type: Resolution: Reviewer: Comments: Coverage Notice Reviewer: [id number] - Sriram Winchester Notice Issued Date-Time: 02/28/2018 12:49 Notice Type: Patient Choice Letter Notice Delivered To: Patient Relationship to Patient: Buy Boat Operator Name: Delivery Method: HAND - Hand Delivered Karen Days: Prior Verbal Notification: Recipient Understood Notice: Yes Recipient Signature: Yes Med Rec Note Co-signed by Attending: Coverage Notice Comment: [facility] Reviewer: [id number] - Sriram Winchester Notice Issued Date-Time: 02/28/2018 12:49 Notice Type: IM Discharge Notice Notice Delivered To: Patient Relationship to Patient: Buy Boat Operator Name: Delivery Method: HAND - Hand Delivered Karen Days: Prior Verbal Notification: Recipient Understood Notice: Yes Recipient Signature: Yes Med Rec Note Co-signed by Attending: Coverage Notice Comment: Patient Name: DERRICK YAN Page [phone] All edits/amendments must be made on the electronic document DICTATION DATE: 02/28/18 1258 DANCE INSTRUCTOR: 02/28/18 1258 RPT#: [id number] DC DATE: STATUS: ADM IN [facility] [address] [place] [address] END OF REPORT
[~2018-02-25 12:23] MED LIST changes: +ZOFRAN4 MG PO
[2018-02-25 13:26] LABS: BASOPHILS 0.2 % (0-2); EOSINOPHILS 0.4 % (0-7); HEMATOCRIT 26.8 % (36.0-48.0); HEMOGLOBIN 8.6 g/dL (12-16); IMMATURE GRANULOCYTES 0.2 % (0-5); LYMPHOCYTES 11.6 % (15-50); MCH 29.5 pg (26.0-34.0); MCHC 32.1 g/dL (31.0-37.0); MCV 91.8 fL (80.0-100.0); MEAN PLATELET VOLUME 9.2 fL (7.4-10.4); MONOCYTES 8.2 % (2-11); NEUTROPHILS 79.4 % (40-80); PLATELET COUNT 228 10x3/uL (130-400); RBC 2.92 10x6/uL (4.00-5.40); RDW 15.2 % (11.5-14.5); WBC 13.6 10x3/uL (4.8-10.8)
[2018-02-25 13:43] LABS: APTT 26.1 SECONDS (22.8-39.4); INR 1.11 (0.85-1.17); PROTIME 13.7 SECONDS (11.6-15.0)
[2018-02-25 13:45] LABS: ALBUMIN 2.5 g/dL (3.4-5.0); ANION GAP 5.7 mmol/L (8-16); BILIRUBIN - TOTAL 0.45 mg/dL (0.2-1.3); CALCIUM 8.5 mg/dL (8.5-10.1); CARBON DIOXIDE 37.6 mmol/L (21.0-32.0); CREATININE - SERUM 2.4 mg/dL (0.6-1.3); POTASSIUM - SERUM 4.3 mmol/L (3.5-5.1); PROTEIN - SERUM 6.4 g/dL (6.4-8.2)
[2018-02-25 16:49] VITALS: BMI 27.8
[2018-02-25 20:30] VITALS: BP 114/57
[2018-02-26 00:30] VITALS: BP 168/61
[2018-02-26 04:30] VITALS: BP 189/75
[2018-02-26 08:46] VITALS: BP 176/57
[2018-02-26] MEDS ORDERED: TESSALON PERLE100 MG PO (11:38)
[2018-02-26 11:45] VITALS: BP 167/59
[2018-02-26 14:43] LABS: % SATURATION 7 % (15-55); IRON 15 ug/dl (35-150); TOTAL IRON BIND CAPACITY 203 ug/dl (260-445); UNSAT IRON BIND CAPACITY 188 ug/dl (150-375)
[2018-02-26 15:59] VITALS: BP 188/65
[2018-02-26 20:00] VITALS: BP 170/62
[2018-02-26 20:43] LABS: APPEARANCE CLEAR (CLEAR); BILIRUBIN NEGATIVE (NEGATIVE); COLOR YELLOW (YELLOW); GLUCOSE NEGATIVE (NEGATIVE); KETONE NEGATIVE (NEGATIVE); NITRITE NEGATIVE (NEGATIVE); PROTEIN TRACE mg/dL (NEGATIVE); UROBILINOGEN NORMAL (NORMAL)
[2018-02-27] VITALS: BP 158/41
[2018-02-27 05:55] LABS: BASOPHILS 0.3 % (0-2); EOSINOPHILS 1.4 % (0-7); HEMOGLOBIN 8.1 g/dL (12-16); IMMATURE GRANULOCYTES 1.2 % (0-5); LYMPHOCYTES 15.2 % (15-50); MCH 28.7 pg (26.0-34.0); MCHC 31.2 g/dL (31.0-37.0); MCV 92.2 fL (80.0-100.0); MEAN PLATELET VOLUME 9.5 fL (7.4-10.4); MONOCYTES 13.3 % (2-11); NEUTROPHILS 68.6 % (40-80); PLATELET COUNT 264 10x3/uL (130-400); RBC 2.82 10x6/uL (4.00-5.40); RDW 15.3 % (11.5-14.5); WBC 11.9 10x3/uL (4.8-10.8)
[2018-02-27 06:19] LABS: ANION GAP 5.8 mmol/L (8-16); CARBON DIOXIDE 34.3 mmol/L (21.0-32.0); POTASSIUM - SERUM 4.1 mmol/L (3.5-5.1)
[2018-02-27 06:37] VITALS: BP 166/53
[2018-02-27 07:30] VITALS: BP 197/79
[2018-02-27 11:00] VITALS: BP 161/56
[2018-02-27 15:47] VITALS: BP 97/75
[2018-02-27 20:00] VITALS: BP 162/62
[2018-02-28] VITALS: BP 156/70
[2018-02-28 04:00] VITALS: BP 83/44
[2018-02-28 05:46] LABS: BASOPHILS 0.2 % (0-2); EOSINOPHILS 2.1 % (0-7); HEMATOCRIT 25.8 % (36.0-48.0); HEMOGLOBIN 7.7 g/dL (12-16); IMMATURE GRANULOCYTES 1.1 % (0-5); LYMPHOCYTES 21.7 % (15-50); MCHC 29.8 g/dL (31.0-37.0); MCV 93.8 fL (80.0-100.0); MEAN PLATELET VOLUME 9.3 fL (7.4-10.4); MONOCYTES 11.6 % (2-11); NEUTROPHILS 63.3 % (40-80); PLATELET COUNT 251 10x3/uL (130-400); RBC 2.75 10x6/uL (4.00-5.40); RDW 15.4 % (11.5-14.5); WBC 10.4 10x3/uL (4.8-10.8)
[2018-02-28 05:57] LABS: CARBON DIOXIDE 34.2 mmol/L (21.0-32.0); CREATININE - SERUM 1.9 mg/dL (0.6-1.3); POTASSIUM - SERUM 4.2 mmol/L (3.5-5.1)
[2018-02-28 07:57] VITALS: BP 204/78
[2018-02-28] MEDS ORDERED: KEFLEX500 MG PO (11:17)
[2018-02-28 12:02] VITALS: BP 182/68
[2018-02-28 20:06] VITALS: BP 172/66
[2018-03-01] VITALS: BP 161/63
[2018-03-01 04:00] VITALS: BP 171/68
[2018-03-01 06:19] LABS: BASOPHILS 0.1 % (0-2); EOSINOPHILS 3.1 % (0-7); HEMATOCRIT 26.6 % (36.0-48.0); HEMOGLOBIN 8.1 g/dL (12-16); IMMATURE GRANULOCYTES 1.9 % (0-5); LYMPHOCYTES 20.1 % (15-50); MCH 28.5 pg (26.0-34.0); MCHC 30.5 g/dL (31.0-37.0); MCV 93.7 fL (80.0-100.0); MEAN PLATELET VOLUME 9.4 fL (7.4-10.4); MONOCYTES 11.6 % (2-11); NEUTROPHILS 63.2 % (40-80); PLATELET COUNT 270 10x3/uL (130-400); RBC 2.84 10x6/uL (4.00-5.40); RDW 15.1 % (11.5-14.5); WBC 10.9 10x3/uL (4.8-10.8)
[2018-03-01 06:55] LABS: ANION GAP 4.1 mmol/L (8-16); CALCIUM 8.2 mg/dL (8.5-10.1); CARBON DIOXIDE 35.6 mmol/L (21.0-32.0); CREATININE - SERUM 1.9 mg/dL (0.6-1.3); POTASSIUM - SERUM 4.7 mmol/L (3.5-5.1)
[2018-03-01 07:43] VITALS: BP 136/72
[2018-03-01 11:40] VITALS: BP 139/69
[2018-03-01 14:57] VITALS: Ht 162.6 cm; Wt 78.9 kg
== END 2018-03-01 15:33 | DRG 683 ==
LOC: D.ER 12:23 → D.EDHOLD 14:13 → D.M2 14:13
PROVIDERS: Emergency Medicine; Internal Medicine Nephrology
DX: N17.9 Acute kidney failure, unspecified (principal); I13.0 Hypertensive heart and chronic kidney disease with heart failure and stage 1 through stage 4 chronic kidney disease, or unspecified chronic kidney disease; I50.30 Unspecified diastolic (congestive) heart failure; H11.30 Conjunctival hemorrhage, unspecified eye; W19.XXXA Unspecified fall, initial encounter; E11.22 Type 2 diabetes mellitus with diabetic chronic kidney disease; N18.9 Chronic kidney disease, unspecified; S00.03XA Contusion of scalp, initial encounter; S05.12XA Contusion of eyeball and orbital tissues, left eye, initial encounter; S05.11XA Contusion of eyeball and orbital tissues, right eye, initial encounter; Z87.891 Personal history of nicotine dependence

== ENCOUNTER 2018-04-11 10:31 | Inpatient (IN) | payer MEDICARE, BC ==
[~2018-04-11] VITALS: Ht 162.6 cm; Wt 69.5 kg
[2018-04-11] VITALS (34 sets, daily range): BP systolic 83–178; BP diastolic 52–77; BMI 25.8
[~2018-04-11 10:31] MED LIST changes: +KEFLEX500 MG PO
[2018-04-11] MEDS ORDERED: TRULICITY0.75 MG/0. SC (10:45)
[2018-04-11 11:12] LABS: BASOPHILS 0.1 % (0-2); EOSINOPHILS 0.8 % (0-7); HEMATOCRIT 28.9 % (36.0-48.0); HEMOGLOBIN 9.4 g/dL (12-16); IMMATURE GRANULOCYTES 0.1 % (0-5); LYMPHOCYTES 16.7 % (15-50); MCH 28.9 pg (26.0-34.0); MCHC 32.5 g/dL (31.0-37.0); MCV 88.9 fL (80.0-100.0); MEAN PLATELET VOLUME 8.8 fL (7.4-10.4); MONOCYTES 12.9 % (2-11); NEUTROPHILS 69.4 % (40-80); RBC 3.25 10x6/uL (4.00-5.40); RDW 15.2 % (11.5-14.5); WBC 10.2 10x3/uL (4.8-10.8)
[2018-04-11 11:19] LABS: PLATELET COUNT 200 10x3/uL (130-400)
[2018-04-11 11:28] LABS: ALBUMIN 2.5 g/dL (3.4-5.0); ALKALINE PHOSPHATASE 55 U/L (46-116); ALT (SGPT) 15 U/L (10-68); BILIRUBIN - TOTAL 0.37 mg/dL (0.2-1.3); CALC OSMOLALITY 263 mosm/kg (275-300); CALCIUM 8.5 mg/dL (8.5-10.1); CHLORIDE - SERUM 97 mmol/L (98-107); CREATININE - SERUM 2.1 mg/dL (0.6-1.3); POTASSIUM - SERUM 3.7 mmol/L (3.5-5.1); PROTEIN - SERUM 6.6 g/dL (6.4-8.2); SODIUM 128 mmol/L (136-145); UREA NITROGEN 27 mg/dL (7-18); eGFR NON AFRICAN AMERICAN 24 mL/min (90-120)
[2018-04-11 11:29] LABS: APTT 31.2 SECONDS (22.8-39.4); GLUCOSE 142 mg/dL (74-106); PROTIME 12.8 SECONDS (11.6-15.0)
[2018-04-11 11:30] LABS: AMYLASE - SERUM 45 U/L (25-115); LIPASE 61 U/L (73-393); TROPONIN-I < 0.017 ng/mL (0.000-0.060)
[2018-04-11 13:28] LABS: AMORPHOUS SEDIMENT <1+ /lpf (NONE SEEN); APPEARANCE SL CLDY (CLEAR); BACTERIA FEW /hpf (NONE SEEN); BILIRUBIN NEGATIVE (NEGATIVE); COLOR YELLOW (YELLOW); EPITHELIAL CELLS 0-5 /hpf (0-5); GLUCOSE NEGATIVE (NEGATIVE); GRANULAR CAST RARE /lpf (NONE SEEN); HYALINE CAST RARE /lpf (NONE SEEN); KETONE NEGATIVE (NEGATIVE); MUCUS <1+ /lpf (NONE SEEN); NITRITE NEGATIVE (NEGATIVE); PROTEIN 1+ mg/dL (NEGATIVE); RED CELLS - URINE 0-5 /hpf (0-5); SPECIFIC GRAVITY 1.015 (1.005-1.020); UROBILINOGEN NORMAL (NORMAL)
[2018-04-11 18:00] LABS: ALBUMIN 2.4 g/dL (3.4-5.0); BILIRUBIN - DIRECT 0.16 mg/dL (0.00-0.30); BILIRUBIN - INDIRECT 0.23 mg/dL (0.00-1.00); BILIRUBIN - TOTAL 0.39 mg/dL (0.2-1.3); PROTEIN - SERUM 6.3 g/dL (6.4-8.2)
[2018-04-12] VITALS (19 sets, daily range): BP systolic 92–182; BP diastolic 51–72; BMI 26.3
[2018-04-12 04:17] LABS: BASOPHILS 0.1 % (0-2); EOSINOPHILS 1.3 % (0-7); HEMOGLOBIN 8.6 g/dL (12-16); IMMATURE GRANULOCYTES 0.1 % (0-5); LYMPHOCYTES 20.8 % (15-50); MCH 28.7 pg (26.0-34.0); MCHC 31.9 g/dL (31.0-37.0); MEAN PLATELET VOLUME 9.7 fL (7.4-10.4); MONOCYTES 13.8 % (2-11); NEUTROPHILS 63.9 % (40-80); PLATELET COUNT 214 10x3/uL (130-400); RDW 15.2 % (11.5-14.5); WBC 9.5 10x3/uL (4.8-10.8)
[2018-04-12 04:37] LABS: ALBUMIN 2.1 g/dL (3.4-5.0); ANION GAP 14.3 mmol/L (8-16); BILIRUBIN - TOTAL 0.34 mg/dL (0.2-1.3); CALCIUM 7.9 mg/dL (8.5-10.1)
[2018-04-12 04:38] LABS: POTASSIUM - SERUM 4.3 mmol/L (3.5-5.1)
[2018-04-13 06:25] LABS: BASOPHILS 0.2 % (0-2); EOSINOPHILS 4.5 % (0-7); HEMOGLOBIN 8.1 g/dL (12-16); IMMATURE GRANULOCYTES 0.2 % (0-5); LYMPHOCYTES 37.1 % (15-50); MCH 28.6 pg (26.0-34.0); MCHC 32.4 g/dL (31.0-37.0); MCV 88.3 fL (80.0-100.0); MEAN PLATELET VOLUME 9.4 fL (7.4-10.4); MONOCYTES 11.9 % (2-11); NEUTROPHILS 46.1 % (40-80); PLATELET COUNT 223 10x3/uL (130-400); RBC 2.83 10x6/uL (4.00-5.40); RDW 15.1 % (11.5-14.5); WBC 9.1 10x3/uL (4.8-10.8)
[2018-04-13 06:55] LABS: ANION GAP 12.6 mmol/L (8-16); BILIRUBIN - TOTAL 0.15 mg/dL (0.2-1.3); CALCIUM 7.6 mg/dL (8.5-10.1); CARBON DIOXIDE 25.6 mmol/L (21.0-32.0); CREATININE - SERUM 1.9 mg/dL (0.6-1.3); POTASSIUM - SERUM 4.2 mmol/L (3.5-5.1); PROTEIN - SERUM 5.2 g/dL (6.4-8.2)
[2018-04-13 08:24] VITALS: BP 152/64
[2018-04-13 09:50] VITALS: Ht 162.6 cm; Wt 69.5 kg
[2018-04-13 13:46] VITALS: BP 152/57
[2018-04-13 20:00] VITALS: BP 170/71
[2018-04-14 04:00] VITALS: BP 153/75
[2018-04-14 06:35] LABS: BASOPHILS 0.2 % (0-2); EOSINOPHILS 3.4 % (0-7); HEMATOCRIT 29.7 % (36.0-48.0); HEMOGLOBIN 9.6 g/dL (12-16); IMMATURE GRANULOCYTES 0.2 % (0-5); LYMPHOCYTES 38.8 % (15-50); MCH 28.2 pg (26.0-34.0); MCHC 32.3 g/dL (31.0-37.0); MCV 87.4 fL (80.0-100.0); MEAN PLATELET VOLUME 9.1 fL (7.4-10.4); MONOCYTES 8.6 % (2-11); NEUTROPHILS 48.8 % (40-80); PLATELET COUNT 193 10x3/uL (130-400); RDW 15.1 % (11.5-14.5); WBC 8.6 10x3/uL (4.8-10.8)
[2018-04-14 07:05] LABS: ANION GAP 10.3 mmol/L (8-16); BILIRUBIN - TOTAL 0.19 mg/dL (0.2-1.3); CARBON DIOXIDE 25.7 mmol/L (21.0-32.0); CREATININE - SERUM 1.7 mg/dL (0.6-1.3); PROTEIN - SERUM 5.5 g/dL (6.4-8.2)
[2018-04-14 08:05] VITALS: BP 187/78
[2018-04-14 11:37] VITALS: BP 163/66
[2018-04-14 16:48] VITALS: BP 110/72
[2018-04-14 20:00] VITALS: BP 189/77
[2018-04-15 04:00] VITALS: BP 165/67
[2018-04-15 06:51] LABS: BASOPHILS 0.4 % (0-2); EOSINOPHILS 3.9 % (0-7); HEMATOCRIT 28.7 % (36.0-48.0); HEMOGLOBIN 9.4 g/dL (12-16); IMMATURE GRANULOCYTES 0.3 % (0-5); LYMPHOCYTES 38.7 % (15-50); MCH 28.7 pg (26.0-34.0); MCHC 32.8 g/dL (31.0-37.0); MCV 87.8 fL (80.0-100.0); MONOCYTES 9.9 % (2-11); NEUTROPHILS 46.8 % (40-80); PLATELET COUNT 187 10x3/uL (130-400); RBC 3.27 10x6/uL (4.00-5.40); RDW 14.7 % (11.5-14.5); WBC 7.4 10x3/uL (4.8-10.8)
[2018-04-15 07:26] LABS: ALBUMIN 1.9 g/dL (3.4-5.0); ANION GAP 11.7 mmol/L (8-16); BILIRUBIN - TOTAL 0.15 mg/dL (0.2-1.3); CARBON DIOXIDE 27.1 mmol/L (21.0-32.0); CREATININE - SERUM 1.4 mg/dL (0.6-1.3); POTASSIUM - SERUM 3.8 mmol/L (3.5-5.1); PROTEIN - SERUM 5.2 g/dL (6.4-8.2)
[2018-04-15 08:28] VITALS: BP 188/78
[2018-04-15 11:31] VITALS: BP 176/68
[2018-04-15 16:29] VITALS: BP 168/73
[2018-04-16] VITALS (17 sets, daily range): BP systolic 143–198; BP diastolic 63–97
[2018-04-16 05:57] LABS: BASOPHILS 0.5 % (0-2); EOSINOPHILS 3.8 % (0-7); HEMATOCRIT 29.5 % (36.0-48.0); HEMOGLOBIN 9.5 g/dL (12-16); IMMATURE GRANULOCYTES 0.5 % (0-5); LYMPHOCYTES 41.6 % (15-50); MCH 28.3 pg (26.0-34.0); MCHC 32.2 g/dL (31.0-37.0); MCV 87.8 fL (80.0-100.0); MEAN PLATELET VOLUME 9.2 fL (7.4-10.4); MONOCYTES 9.2 % (2-11); NEUTROPHILS 44.4 % (40-80); PLATELET COUNT 224 10x3/uL (130-400); RBC 3.36 10x6/uL (4.00-5.40); RDW 14.7 % (11.5-14.5); WBC 8.7 10x3/uL (4.8-10.8)
[2018-04-16 06:07] LABS: ALBUMIN 1.9 g/dL (3.4-5.0); ANION GAP 10.1 mmol/L (8-16); BILIRUBIN - TOTAL 0.18 mg/dL (0.2-1.3); CALCIUM 7.9 mg/dL (8.5-10.1); CARBON DIOXIDE 27.5 mmol/L (21.0-32.0); CREATININE - SERUM 1.5 mg/dL (0.6-1.3); POTASSIUM - SERUM 3.6 mmol/L (3.5-5.1); PROTEIN - SERUM 5.2 g/dL (6.4-8.2)
[2018-04-17 04:57] VITALS: BP 154/79
[2018-04-17 07:26] LABS: BASOPHILS 0.2 % (0-2); EOSINOPHILS 2.5 % (0-7); HEMATOCRIT 29.7 % (36.0-48.0); HEMOGLOBIN 9.7 g/dL (12-16); IMMATURE GRANULOCYTES 0.5 % (0-5); LYMPHOCYTES 24.4 % (15-50); MCH 28.7 pg (26.0-34.0); MCHC 32.7 g/dL (31.0-37.0); MCV 87.9 fL (80.0-100.0); MEAN PLATELET VOLUME 9.2 fL (7.4-10.4); MONOCYTES 10.9 % (2-11); NEUTROPHILS 61.5 % (40-80); PLATELET COUNT 212 10x3/uL (130-400); RBC 3.38 10x6/uL (4.00-5.40); RDW 14.9 % (11.5-14.5); WBC 10.7 10x3/uL (4.8-10.8)
[2018-04-17 07:47] LABS: ALBUMIN 1.9 g/dL (3.4-5.0); ANION GAP 7.5 mmol/L (8-16); BILIRUBIN - TOTAL 0.2 mg/dL (0.2-1.3); CALCIUM 7.7 mg/dL (8.5-10.1); CARBON DIOXIDE 28.9 mmol/L (21.0-32.0); CREATININE - SERUM 1.5 mg/dL (0.6-1.3); POTASSIUM - SERUM 3.4 mmol/L (3.5-5.1); PROTEIN - SERUM 5.1 g/dL (6.4-8.2)
[2018-04-17 08:05] VITALS: BP 164/75
[2018-04-17] MEDS ORDERED: HYDROCODON-ACE1 EAC7 PO (08:48)
[2018-04-17] MEDS ORDERED: LEVAQUIN250 MG PO (11:59)
[2018-04-17] MEDS ORDERED: CATAPRES0.1 MG PO (11:59)
[2018-04-17] MEDS ORDERED: FLAGYL500 MG PO (11:59)
[2018-04-17] MEDS ORDERED: Nystatin Oral Susp [ PO (11:59)
[2018-04-17 13:21] VITALS: BP 192/77
[2018-04-17 14:18] VITALS: BP 200/81
== END 2018-04-17 15:23 | disposition home health service (06) | DRG 357 ==
LOC: D.ER 10:31 → D.EDHOLD 14:46 → D.ICU 14:46 → D.MS 14:46 → D.CVICU 14:52 → D.ICU 15:01 → D.MS 04-12 14:13 → D.SDCHOLD 04-15 10:52 → D.MS 04-15 10:53
PROVIDERS: Family Medicine; Internal Medicine Gastroenterology; Internal Medicine Nephrology; Surgery
PROC: 0FT44ZZ Resection of Gallbladder, Percutaneous Endoscopic Approach (ICD-10-PCS; principal; 2018-04-16 08:00)
DX: A09 Infectious gastroenteritis and colitis, unspecified (principal); K80.10 Calculus of gallbladder with chronic cholecystitis without obstruction; D62 Acute posthemorrhagic anemia; I13.0 Hypertensive heart and chronic kidney disease with heart failure and stage 1 through stage 4 chronic kidney disease, or unspecified chronic kidney disease; I50.32 Chronic diastolic (congestive) heart failure; E87.1 Hypo-osmolality and hyponatremia; N17.9 Acute kidney failure, unspecified; K92.1 Melena; K82.8 Other specified diseases of gallbladder; E11.9 Type 2 diabetes mellitus without complications; N18.3 Chronic kidney disease, stage 3 (moderate); E11.22 Type 2 diabetes mellitus with diabetic chronic kidney disease; Z87.891 Personal history of nicotine dependence; F41.9 Anxiety disorder, unspecified; K21.9 Gastro-esophageal reflux disease without esophagitis; K64.8 Other hemorrhoids

== ENCOUNTER 2018-04-18 12:57 | Emergency (ER) | payer MEDICARE, BC ==
[~2018-04-18] VITALS: Ht 162.6 cm; Wt 75.9 kg
[~2018-04-18 12:57] MED LIST changes: +CATAPRES0.1 MG PO; +FLAGYL500 MG PO; +HYDROCODON-ACE1 EAC7 PO; +Nystatin Oral Susp [ PO; +TRULICITY0.75 MG/0. SC
[2018-04-18 13:09] VITALS: Ht 162.6 cm; Wt 75.9 kg
[2018-04-18 13:29] LABS: BASOPHILS 0.1 % (0-2); EOSINOPHILS 0.9 % (0-7); HEMATOCRIT 29.1 % (36.0-48.0); HEMOGLOBIN 9.6 g/dL (12-16); IMMATURE GRANULOCYTES 0.9 % (0-5); LYMPHOCYTES 24.8 % (15-50); MCH 28.9 pg (26.0-34.0); MCV 87.7 fL (80.0-100.0); MEAN PLATELET VOLUME 8.9 fL (7.4-10.4); NEUTROPHILS 65.3 % (40-80); PLATELET COUNT 218 10x3/uL (130-400); RBC 3.32 10x6/uL (4.00-5.40); WBC 12.5 10x3/uL (4.8-10.8)
[2018-04-18 13:49] LABS: ALBUMIN 2.1 g/dL (3.4-5.0); ANION GAP 8.6 mmol/L (8-16); BILIRUBIN - TOTAL 0.19 mg/dL (0.2-1.3); CALCIUM 7.9 mg/dL (8.5-10.1); CARBON DIOXIDE 28.2 mmol/L (21.0-32.0); CREATININE - SERUM 1.7 mg/dL (0.6-1.3); POTASSIUM - SERUM 3.8 mmol/L (3.5-5.1); PROTEIN - SERUM 5.6 g/dL (6.4-8.2)
[2018-04-18 18:35] VITALS: BP 173/83
== END 2018-04-18 18:36 | disposition home or self-care (01) ==
LOC: D.ER 12:57
PROVIDERS: Emergency Medicine
DX: R63.5 Abnormal weight gain (principal); E11.9 Type 2 diabetes mellitus without complications; Z86.79 Personal history of other diseases of the circulatory system; Z98.890 Other specified postprocedural states; I10 Essential (primary) hypertension

== ENCOUNTER 2020-01-20 14:13 | Inpatient (IN) | payer MEDICARE, BC ==
[~2020-01-20] VITALS: Ht 162.6 cm; Wt 69.4 kg
[2020-01-20] MEDS ORDERED: VENTOLIN HFA [SP8 GM INH (14:48)
[2020-01-20] MEDS ORDERED: LISINOPRIL20 MG PO (14:48)
[2020-01-20] MEDS ORDERED: TENORMIN25 MG PO (14:49)
[2020-01-20 14:53] VITALS: BP 195/69; BMI 26.3
[2020-01-20 15:20] LABS: BASOPHILS 0.4 % (0-2); HEMATOCRIT 24.4 % (36.0-48.0); HEMOGLOBIN 7.6 g/dL (12-16); IMMATURE GRANULOCYTES 0.2 % (0-5); LYMPHOCYTES 28.2 % (15-50); MCHC 31.1 g/dL (31.0-37.0); MCV 86.5 fL (80.0-100.0); MEAN PLATELET VOLUME 9.1 fL (7.4-10.4); MONOCYTES 7.1 % (2-11); NEUTROPHILS 63.1 % (40-80); PLATELET COUNT 260 10x3/uL (130-400); RBC 2.82 10x6/uL (4.00-5.40); RDW 15.2 % (11.5-14.5); WBC 10.2 10x3/uL (4.8-10.8)
[2020-01-20 15:31] LABS: ANION GAP 10.4 mmol/L (8-16); CALCIUM 8.5 mg/dL (8.5-10.1); CARBON DIOXIDE 28.6 mmol/L (21.0-32.0); CREATININE - SERUM 2.1 mg/dL (0.6-1.3)
[2020-01-20 15:37] LABS: ALBUMIN 3.1 g/dL (3.4-5.0); BILIRUBIN - TOTAL 0.23 mg/dL (0.2-1.3); PROTEIN - SERUM 6.8 g/dL (6.4-8.2)
[2020-01-20 15:58] LABS: BILIRUBIN NEGATIVE (NEGATIVE); GLUCOSE NEGATIVE (NEGATIVE); KETONE NEGATIVE (NEGATIVE); NITRITE POSITIVE (NEGATIVE); UROBILINOGEN NORMAL (NORMAL)
[2020-01-20 16:00] LABS: EPITHELIAL CELLS 0-5 /hpf (0-5); RED CELLS - URINE 0-5 /hpf (0-5); WHITE CELLS - URINE 0-5 /hpf (NEGATIVE)
[2020-01-20 16:01] LABS: BACTERIA MANY /hpf (NEGATIVE)
[2020-01-20 16:12] LABS: % SATURATION 9 % (15-55); IRON 28 ug/dl (35-150); TOTAL IRON BIND CAPACITY 298 ug/dl (260-445); UNSAT IRON BIND CAPACITY 270 ug/dl (150-375)
[2020-01-20 16:29] LABS: FERRITIN 29 ng/mL (3-244); LDH 231 U/L (81-234)
--- NOTE | 2020-01-20 19:00 | NUR ---
BEDSIDE REPORT RECEIVED AND CARE OF PT ASSUEMD. PT LYING IN SUPINE POSITION WATCHING TV. IV TO LEFT FA PATENT. MELINA MONITOR FOR NEEDS.
--- NOTE | 2020-01-20 20:13 | NUR ---
FIRST UNIT OF BLOOD STARTED. BP SOME ELEVATED...APRESOLINE GIVEN PER SCHEDULE.
--- NOTE | 2020-01-20 20:20 | NUR ---
HS MEDICATIONS GIVEN. WILL CONTINUE TO MONITOR FOR NEEDS.
[2020-01-20 20:27] VITALS: BP 162/43
[2020-01-21 00:33] VITALS: BP 170/52
[2020-01-21 04:00] VITALS: BP 157/50
--- NOTE | 2020-01-21 04:26 | NUR ---
COMPLETED ADMINISTRATION OF 2 UNITS OF PRBC'S THIS SHIFT. VITALS STABLE, WITH NO TRANSFUSION REACTION. PT RESTING QUIETLY AT THIS TIME WITH EYES CLOSED AND EASY RESPIRATIONS.
[2020-01-21 05:35] LABS: BASOPHILS 0.3 % (0-2); IMMATURE GRANULOCYTES 0.1 % (0-5); LYMPHOCYTES 35.5 % (15-50); MCHC 32.4 g/dL (31.0-37.0); MCV 86.3 fL (80.0-100.0); MEAN PLATELET VOLUME 9.5 fL (7.4-10.4); MONOCYTES 8.5 % (2-11); NEUTROPHILS 53.6 % (40-80); PLATELET COUNT 214 10x3/uL (130-400); RDW 14.7 % (11.5-14.5)
[2020-01-21 05:37] LABS: HEMATOCRIT 29.6 % (36.0-48.0); HEMOGLOBIN 9.6 g/dL (12-16); RBC 3.43 10x6/uL (4.00-5.40); WBC 6.9 10x3/uL (4.8-10.8)
[2020-01-21 05:56] LABS: ALBUMIN 2.5 g/dL (3.4-5.0); ANION GAP 10.2 mmol/L (8-16); BILIRUBIN - TOTAL 0.45 mg/dL (0.2-1.3); CALCIUM 8.4 mg/dL (8.5-10.1); CARBON DIOXIDE 27.1 mmol/L (21.0-32.0); CREATININE - SERUM 1.9 mg/dL (0.6-1.3); POTASSIUM - SERUM 4.3 mmol/L (3.5-5.1); PROTEIN - SERUM 5.9 g/dL (6.4-8.2)
--- NOTE | 2020-01-21 07:30 | NUR ---
REC'D IN BED AWAKE AND ALERT. RESP EVEN AND UNLABORED WITH NO DISTRESS NOTED. CAN EXPRESS. NO C/O NOTED. ASSESMENT COMPLETED. C/L IN REACH AT BEDSIDE.
[2020-01-21 08:00] VITALS: BP 176/67
[2020-01-21 12:00] VITALS: BP 186/65
[2020-01-21 13:50] VITALS: Ht 162.6 cm; Wt 69.4 kg
[2020-01-21] MEDS ORDERED: PROTONIX40 MG PO (15:52)
--- NOTE | 2020-01-21 17:32 | NUR ---
DC HOME AT THIS TIME WITH ALL PERSONAL. VOICE UNDERSTANDING OF DC INSTRUCTIONS.
[2020-01-22] MEDS ORDERED: BACTRIM DS TAB1 EAC1 PO (16:24)
== END 2020-01-21 17:35 | disposition home or self-care (01) | DRG 811 ==
LOC: D.MS 14:13 → OBSVTIME 14:15 → D.MS 14:37
PROVIDERS: Internal Medicine Gastroenterology; ADMIT Family Medicine; ATTEND Family Medicine
PROC: 0DB68ZX Excision of Stomach, Via Natural or Artificial Opening Endoscopic, Diagnostic (ICD-10-PCS; principal; 2020-01-21 15:00)
DX: D50.0 Iron deficiency anemia secondary to blood loss (chronic) (principal); K25.4 Chronic or unspecified gastric ulcer with hemorrhage; I13.0 Hypertensive heart and chronic kidney disease with heart failure and stage 1 through stage 4 chronic kidney disease, or unspecified chronic kidney disease; N18.4 Chronic kidney disease, stage 4 (severe); I50.32 Chronic diastolic (congestive) heart failure; E11.9 Type 2 diabetes mellitus without complications; E11.40 Type 2 diabetes mellitus with diabetic neuropathy, unspecified; E78.5 Hyperlipidemia, unspecified; J44.9 Chronic obstructive pulmonary disease, unspecified; K21.9 Gastro-esophageal reflux disease without esophagitis; K58.9 Irritable bowel syndrome, unspecified